=== PATIENT | female | born 1945 | race Two or more races ===

== ENCOUNTER 2019-07-25 12:25 | Emergency (ER) | payer OTHER ==
[~2019-07-25] VITALS: Ht 167.6 cm; Wt 102.1 kg
[~2019-07-25 12:25] MED LIST: CIPROFLOXACIN750 MG PO; CRESTOR10 MG PO; DIAZEPAM10 MG PO; DOCUSATE SODIU100 MG PO; DOLOGESIC 500-1 EACH PO; GLIPIZIDE10 MG PO; LANTUS SOLOSTAR3 ML; LEVEMIR100 U/M1 SQ; LOSARTAN-HCTZ1 EACH PO; METHYLPRED4 MG/DOSE- PO; NEURONTIN PO; SYNTHROID137 MCG PO
== END 2019-07-25 19:46 | disposition home or self-care (01) ==
LOC: ER 12:25
DX: M25.561 Pain in right knee (principal)